=== PATIENT | male | born 1960 | race Caucasian/White ===

== ENCOUNTER 2020-10-26 18:10 | Emergency (ER) | payer OTHER, MEDICAID, SELFPAY ==
[2020-10-26 18:12] VITALS: BP 116/78; PULSE 105; RESP 20; TEMP 36.2; O2SAT 96
--- NOTE | 2020-10-26 18:44 | DI.RAD.S_ITS ---
PROCEDURE: XR FEMUR RT 1V INDICATIONS: Fall. TECHNIQUE: Single AP view of the femur were acquired. COMPARISON: None. FINDINGS: Bones: Prior above the knee amputation No fractures or dislocations. No suspicious bony lesions. Soft tissues: No suspicious soft tissue calcifications or masses. IMPRESSION: No acute finding. Dictated by: Akshat Rodríguez M.D. on 10/26/2020 at 19:01 Approved by: Akshat Rodríguez M.D. on 10/26/2020 at 19:02
--- NOTE | 2020-10-26 18:44 | DI.RAD.S_ITS ---
PROCEDURE: XR FEMUR LT 1V INDICATIONS: Fall. TECHNIQUE: 1 AP views of the femur were acquired. COMPARISON: None. FINDINGS: Bones: Changes related to above the knee amputation. No fracture or suspicious lytic/blastic osseous lesion. Soft tissues: No suspicious soft tissue calcifications or masses. IMPRESSION: No acute finding. Dictated by: Akshat Rodríguez M.D. on 10/26/2020 at 19:00 Approved by: Aksaht Rodríguez M.D. on 10/26/2020 at 19:01
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
[2020-10-26 22:44] VITALS: BP 109/62; PULSE 88; RESP 18; O2SAT 97
[2020-10-26] MEDS: TRAMADOL 50 MG PREPACK 1 BOTTLE MISC (22:52)
== END 2020-10-26 23:26 | disposition home or self-care (01) ==
PROVIDERS: Emergency Provider Emergency Medicine
DX: S80.11XA Contusion of right lower leg, initial encounter (principal); W05.0XXA Fall from non-moving wheelchair, initial encounter; Z89.611 Acquired absence of right leg above knee; Z89.612 Acquired absence of left leg above knee
CPT/HCPCS: 73551; 99283

== ENCOUNTER 2021-01-27 03:28 | Emergency (ER) | payer OTHER, MEDICAID, SELFPAY ==
[2021-01-27] VITALS (8 sets, daily range): BP systolic 128–163; BP diastolic 72–99; PULSE 83–97; RESP 16–20; TEMP 36.6; O2SAT 92–97
--- NOTE | 2021-01-27 03:48 | ED.GENADULT ---
HPI - General Adult General Chief complaint: Toxicology Problem Stated complaint: alcohol detox help needed Time Seen by Provider: 01/27/21 03:32 Source: patient Mode of arrival: Wheelchair Limitations: no limitations History of Present Illness HPI narrative: Patient is a 60-year-old male. History of anxiety. Has a history of alcohol abuse. He states this is been going on for ?some time now ?his last drink was ?just a short while ago ?he has been to alcohol detox in the past. He states he has withdrawn from alcohol in the past. He is here seeking medical clearance for alcohol detox. He states that his girlfriend called the facility and they do have bed availability but that he needs to get medically cleared. He currently does not take any medications. He states that he has ?sternum pain ?that has been going on for a long time now him like an x-ray for this. Does have some shaking. Does have tremors in his right hand. No hallucinations. No sweating. No nausea. Related Data Previous Rx's Medication Instructions Recorded tramadol 50 mg tablet 50 mg PO Q6-8H PRN #10 tab 10/26/20 Allergies Allergy/AdvReac Type Severity Reaction Status Date / Time No Known Drug Allergies Allergy Verified 10/26/20 18:19 Review of Systems Constitutional Constitutional: Reports system reviewed and no additional complaints, except as documented Cardiovascular Cardiovascular: Reports system reviewed and no additional complaints, except as documented Respiratory Respiratory: Reports system reviewed and no additional complaints, except as documented Gastrointestinal Gastrointestinal: Reports system reviewed and no additional complaints, except as documented Musculoskeletal Musculoskeletal: Reports system reviewed and no additional complaints, except as documented Integumentary/Breasts Skin/Breast: Reports system reviewed and no additional complaints, except as documented Neurologic Neurologic: Reports system reviewed and no additional complaints, except as documented Hematologic/Lymphatic On Anticoagulants: No Allergic/Immunologic Allergic/Immunologic: Reports system reviewed and no additional complaints, except as documented Patient History Medical History Alcohol abuse Anxiety 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 Social History Smoking Status: Current every day smoker Smoking Status: Current every day smoker alcohol intake frequency: holidays/special occasions only Substance Use Type: does not use Exam Initial Vital Signs Initial Vital Signs: Vital Signs Temperature 97.8 F 01/27/21 03:35 Pulse Rate 97 H 01/27/21 03:35 Respiratory Rate 20 01/27/21 03:35 Blood Pressure 163/99 H 01/27/21 03:35 Pulse Oximetry 95 01/27/21 03:35 Const General: cooperative and comfortable HENMT Head: normal to inspection and normocephalic Chest Chest: tenderness (Over sternum) Resp Effort & Inspection: normal respiratory effort Auscultation: clear to auscultation bilaterally Cardio Rate: regular rate GI Inspection: normal to inspection Skin General: no rashes or lesions noted Neuro General: patient alert, patient awake, patient oriented x3 and moves all extremities Extrem Other: Bilateral lower extremity [id number] amputations Scores GCS Ken coma scale eye opening: Spontaneous [place] coma scale verbal response: Orientated Ken coma scale motor response: Obey commands [place] coma scale total score: 15 Course Orders Ordered: ED Orders 01/27/21 03:49 COVID19 -Nasal swab/Pre-Proc Stat Complete Blood Count AUTO DIFF Stat Comprehensive Metabolic Panel Stat Ethanol (ETOH) Stat Lipase Stat Urine Drug Screen, Rapid Stat 01/27/21 03:50 XR chest 1V Stat EKG-12 Lead Stat Discontinued Medications Phenobarbital (Phenobarbital 65 Mg/Ml Vial) 130 mg IV NOW ONE Stop: 01/27/21 03:50 Last Admin: 01/27/21 04:08 Dose: 130 mg Documented by: Vital Signs Vital signs: Vital Signs - 8 hr 01/27/21 03:35 01/27/21 03:43 01/27/21 04:00 Temperature 97.8 F Pulse Rate 97 H 94 H 90 Respiratory Rate 20 Blood Pressure 163/99 H 146/83 H Pulse Oximetry 95 95 94 01/27/21 04:30 01/27/21 05:00 01/27/21 05:30 Temperature Pulse Rate 90 86 83 Respiratory Rate 20 Blood Pressure 143/78 H 141/77 H 128/72 Pulse Oximetry 92 93 95 01/27/21 06:00 Temperature Pulse Rate 92 H Respiratory Rate Blood Pressure 142/82 H Pulse Oximetry 95 Medical Decision Making Medical Records Medical records reviewed: Yes I reviewed the patient's medical records. Lab Data Lab results reviewed: Yes I reviewed the patient's lab results. Result diagrams: 01/27/21 04:05 09/16/21 04:05 Labs: Lab Results 01/27/21 01/27/21 01/27/21 Range/Units 04:05 04:05 04:20 WBC 7.2 (4.5-11.0) X10^3/uL RBC 4.57 (4.5-5.9) X10^6/uL Hgb 14.9 (13.5-17.5) g/dL Hct 43.6 (41-53) % MCV 95.5 (80-100) fL MCH 32.7 (26-34) PG MCHC 34.2 (30-36) % RDW 14.7 (11.6-14.8) % Plt Count 258 (150-400) X10^3/uL Neut % (Auto) 63.1 (50-75) % Lymph % (Auto) 25.8 (25-40) % [place] % (Auto) 9.2 (3-14) % Eos % (Auto) 1.2 L (2-4) % Baso % (Auto) 0.7 (0-2) % Neut # (Auto) 4500 (6869-5448) /uL Lymph # (Auto) 1900 (4382-9015) /uL [place] # (Auto) 700 (0-900) /uL Eos # (Auto) 100 (0-450) /uL Baso # (Auto) 0 (0-100) /uL Sodium 139 (137-145) mmol/L Potassium 3.9 (3.4-5.1) mmol/L Chloride 108 H (98-107) mmol/L Carbon Dioxide 24 (22-32) mmol/L BUN 8 L (9-20) mg/dL Creatinine 0.39 L (0.66-1.25) mg/dL Estimated GFR > 60.0 (>60) mL/min BUN/Creatinine Ratio 20.5 (6-22) Glucose 104 H (70-100) mg/dL Calcium 9.0 (8.4-10.2) mg/dL Total Bilirubin 0.3 (0.2-1.3) mg/dL AST 46 (17-59) IU/L ALT 32 (<50) IU/L Alkaline Phosphatase 74 (38-126) U/L Total Protein 7.6 (6.3-8.2) g/dL Albumin 4.4 (3.5-5.0) g/dL Globulin 3.2 (1.7-4.1) g/dL Albumin/Globulin Ratio 1.4 (1.0-2.8) Lipase 336 H (23-300) U/L U Opiates 300ng/mL cut (Negative) Ur Oxycodone Screen (Negative) Urine Methadone Screen (Negative) Ur Barbiturates Screen (Negative) U Tricyclic Antidepress (Negative) Ur Phencyclidine Scrn (Negative) Ur Amphetamines Screen (Negative) U Methamphetamines Scrn (Negative) Ur MDMA Scrn (Ecstasy) (Negative) U Benzodiazepines Scrn (Negative) Urine Cocaine Screen (Negative) U Marijuana (THC) Screen (Negative) Ethyl Alcohol 232 H ( - 10) mg/dL SARS-CoV-2 (PCR) Negative (Negative) 01/27/21 Range/Units 04:23 WBC (4.5-11.0) X10^3/uL RBC (4.5-5.9) X10^6/uL Hgb (13.5-17.5) g/dL Hct (41-53) % MCV (80-100) fL MCH (26-34) PG MCHC (30-36) % RDW (11.6-14.8) % Plt Count (150-400) X10^3/uL Neut % (Auto) (50-75) % Lymph % (Auto) (25-40) % [place] % (Auto) (3-14) % Eos % (Auto) (2-4) % Baso % (Auto) (0-2) % Neut # (Auto) (9379-8270) /uL Lymph # (Auto) (1827-9445) /uL [place] # (Auto) (0-900) /uL Eos # (Auto) (0-450) /uL Baso # (Auto) (0-100) /uL Sodium (137-145) mmol/L Potassium (3.4-5.1) mmol/L Chloride (98-107) mmol/L Carbon Dioxide (22-32) mmol/L BUN (9-20) mg/dL Creatinine (0.66-1.25) mg/dL Estimated GFR (>60) mL/min BUN/Creatinine Ratio (6-22) Glucose (70-100) mg/dL Calcium (8.4-10.2) mg/dL Total Bilirubin (0.2-1.3) mg/dL AST (17-59) IU/L ALT (<50) IU/L Alkaline Phosphatase (38-126) U/L Total Protein (6.3-8.2) g/dL Albumin (3.5-5.0) g/dL Globulin (1.7-4.1) g/dL Albumin/Globulin Ratio (1.0-2.8) Lipase (23-300) U/L U Opiates 300ng/mL cut Negative (Negative) Ur Oxycodone Screen Negative (Negative) Urine Methadone Screen Negative (Negative) Ur Barbiturates Screen Negative (Negative) U Tricyclic Antidepress Negative (Negative) Ur Phencyclidine Scrn Negative (Negative) Ur Amphetamines Screen Negative (Negative) U Methamphetamines Scrn Negative (Negative) Ur MDMA Scrn (Ecstasy) Negative (Negative) U Benzodiazepines Scrn Negative (Negative) Urine Cocaine Screen Negative (Negative) U Marijuana (THC) Screen Negative (Negative) Ethyl Alcohol ( - 10) mg/dL SARS-CoV-2 (PCR) (Negative) Imaging Data Chest x-ray: Radiologist's Impression: No acute cardiopulmonary abnormality identified ECG Data Attestation: I personally reviewed and interpreted this ECG as follows: Interpretation: Sinus rhythm Ventricular rate 90 Normal axis Normal QRS QTC No ST T wave changes MDM Narrative Medical decision making narrative: Patient is intoxicated. No signs of withdrawal. Is medically cleared. There are no beds available at the detox facility the patient is interested in. He would like to be discharged home. Care turned over to Dr. delgado to disposition while waiting a ride Discharge Plan Departure Patient Disposition: Home Clinical Impression: Alcoholic intoxication Instructions: DI for Alcohol Use Disorder Activity Restrictions/Additional Instructions: I recommend that you make contact with the primary doctor. You can contact [phone]. You can return to the emergency department in the future if you would like continue to help with your alcohol use. Prescriptions: No Action tramadol 50 mg tablet 50 mg PO Q6-8H PRN (Reason: pain) Qty: 10 RF: 0
--- NOTE | 2021-01-27 03:50 | DI.RAD.S_ITS ---
PROCEDURE: XR CHEST 1V INDICATIONS: Sternum pain TECHNIQUE: One view of the chest was acquired. COMPARISON: None. FINDINGS: Surgical changes and devices: None. Lungs and pleura: Lungs are clear. No pleural effusions or pneumothorax. Mediastinum: Mediastinal contours appear normal. Heart size is normal. Bones and chest wall: No suspicious bony lesions. Overlying soft tissues appear unremarkable. IMPRESSION: No acute cardiopulmonary abnormalities or focal airspace disease. No significant discrepancy with the caustic cresylate shift superintendent radiology preliminary report. Dictated by: Orion Joyce M.D. on 01/27/2021 at 7:47 Approved by: Orion Joyce M.D. on 01/27/2021 at 7:47
[2021-01-27] MEDS: PHENobarbital 65 MG/ML VIAL 130 MG IV (04:08)
[2021-01-27 04:12] LABS: Add Manual Diff / Slide Review NO; Basophils Absolute Auto 0 /uL (0-100); Basophils Percent Auto 0.7 % (0-2); Eosinophils Absolute Auto 100 /uL (0-450); Eosinophils Percent Auto 1.2 % (2-4); Hematocrit 43.6 % (41-53); Hemoglobin 14.9 g/dL (13.5-17.5); Lymphocytes Absolute Auto 1900 /uL (1100-4500); Lymphocytes Percent Auto 25.8 % (25-40); Mean Corpuscular HGB Conc 34.2 % (30-36); Mean Corpuscular Hemoglobin 32.7 PG (26-34); Mean Corpuscular Volume 95.5 fL (80-100); Monocytes Absolute Auto 700 /uL (0-900); Monocytes Percent Auto 9.2 % (3-14); Neutrophils Absolute Auto 4500 /uL (1500-7000); Neutrophils Percent Auto 63.1 % (50-75); Platelet Count 258 X10^3/uL (150-400); Red Blood Cell Count 4.57 X10^6/uL (4.5-5.9); Red Cell Distribution Width 14.7 % (11.6-14.8); White Blood Cell Count 7.2 X10^3/uL (4.5-11.0)
[2021-01-27 04:21] LABS: Alanine Aminotransferase 32 IU/L (<50); Albumin 4.4 g/dL (3.5-5.0); Albumin Globulin Ratio 1.4 (1.0-2.8); Alkaline Phosphatase 74 U/L (38-126); Aspartate Aminotransferase 46 IU/L (17-59); BUN Creatinine Ratio 20.5 (6-22); Bilirubin Total 0.3 mg/dL (0.2-1.3); Blood Urea Nitrogen 8 mg/dL (9-20); Carbon Dioxide 24 mmol/L (22-32); Chloride 108 mmol/L (98-107); Estimated Glomerular Filt Rate > 60.0 mL/min (>60); Ethanol (ETOH) 232 mg/dL; Globulin 3.2 g/dL (1.7-4.1); Glucose 104 mg/dL (70-100); HEMOLYSIS 21 (0-50); Lipase 336 U/L (23-300); Potassium 3.9 mmol/L (3.4-5.1); Sodium 139 mmol/L (137-145); Total Protein 7.6 g/dL (6.3-8.2)
[2021-01-27 04:31] LABS: UR Morphine/Opiate cutoff 300 Negative (Negative); Ur Creatinine 20 (Normal); Ur Specific Gravity 1.015 (Normal); Urine Amphetamines Negative (Negative); Urine Barbiturates Negative (Negative); Urine Benzodiazepines Negative (Negative); Urine Cocaine Negative (Negative); Urine MDMA Negative (Negative); Urine Methadone Negative (Negative); Urine Methamphetamines Negative (Negative); Urine Oxycodone Negative (Negative); Urine Phencyclidine Negative (Negative); Urine Tetrahydrocannabinol Negative (Negative); Urine Tricyclic Antidepressant Negative (Negative); Urine pH 5 (Normal)
[2021-01-27 04:43] LABS: COVID19 -Nasal RAPID Negative (Negative)
--- NOTE | 2021-01-27 06:47 | PC.NURSE ---
He accidentally pulled his IV cath out patent and intact.No bleeding now at site.
== END 2021-01-27 11:01 | disposition home or self-care (01) ==
PROVIDERS: Emergency Provider Emergency Medicine
DX: F10.229 Alcohol dependence with intoxication, unspecified (principal); Y90.8 Blood alcohol level of 240 mg/100 ml or more; Z20.822 Contact with and (suspected) exposure to COVID-19
CPT/HCPCS: 36415; 71045; 80053; 80305; 80320; 83690; 85025; 87635; 93005; 93010; 96374; 99284; C9803; J2560